=== PATIENT | female | born 1945 | race American Indian/Alaskan Native ===

== ENCOUNTER 2017-09-26 11:10 | Day surgery (SDC) | payer MEDICARE ==
[2017-02-10 19:25] VITALS: BMI 27.4
[2017-09-26] MEDS ORDERED: Propofol 10 mg/ml Inj (20 ML) ONE (16:31)
[2017-09-26] MEDS ORDERED: cefTRIAXone IV 1 gm in Dextros 50 ML IVPB ONE (16:33)
[2017-09-26] MEDS ORDERED: Iohexol 240 (50 ml) ONE (16:33)
[2017-09-26] MEDS ORDERED: HYDROmorphone 0.5 mg/0.5 ml ISec IVP PRN (17:02)
--- NOTE | 2017-09-26 17:24 | RAD ---
Date of service: 09/26/2017 HISTORY: LT HYDRONEPHROSIS COMPARISON: No prior. FINDINGS: BOWEL: Moderate stool retention. Hyperdensities in the left colon possibly related to ingestion and/or conceivably residual oral contrast from an outside CT however, no history of such an outside CT is provided. BONES: Leftward lumbar convexity and mild hypertrophic right L4-5 facet arthrosis para graft bilateral hip arthrosis OTHER FINDINGS: Bilateral hemipelvic calcifications -etiology indeterminate correlation is needed regards to any outside studies - these may be vascular enter GI contact related. Urolithiasis not excluded. Correlation with outside imaging is essential IMPRESSION: Moderate stool retention. No gross renal calculi appreciated Other findings -as above.
[2017-09-26] MEDS ORDERED: Oxycodone/Acetaminophen 5/325 mg Tab PO PRN (17:26)
[2017-09-26 18:36] VITALS: BP 110/90; PULSE 70; RESP 18; TEMP 97; O2SAT 98
--- NOTE | 2017-09-27 11:50 | RAD ---
Date of service: 09/26/2017 PROCEDURE: Intraoperative fluoroscopy HISTORY: LT HYDRONEPHROSIS COMPARISON: Not available TECHNIQUE: Intraoperative fluoroscopy was provided for retrograde pyeloureterography. Total time of fluoroscopy was 6.6 seconds. Accumulated dose is [id number] mGy per meter squared FINDINGS: Multiple fluoroscopic spot films are submitted. Films are on file for review. IMPRESSION: Fluoroscopy provided.
--- NOTE | 2017-10-11 13:24 | OP ---
Copied To: Markus Denson MD Attending MD: Markus Denson MD PROCEDURE DATE: 09/26/2017 PREOPERATIVE DIAGNOSES: Hematuria, voiding dysfunction, and occasional back pain. POSTOPERATIVE DIAGNOSES: Hematuria, voiding dysfunction, and occasional back pain. PROCEDURES: Exam under anesthesia, cystoscopy, bilateral retrograde pyelogram. ESTIMATED BLOOD LOSS: Less than 10 mL. COMPLICATIONS: There were no complications. SPECIMEN: There were no specimens. FINDINGS: No specific major abnormalities detected. INDICATIONS: See history and physical for further details. DESCRIPTION OF PROCEDURE: After obtaining informed consent, the patient was placed on the table. Routine monitors were placed. Timeout was called to confirm the patient and positioning. Risks and benefits were discussed with the patient. Timeout was called. Antibiotic prophylaxis was used. We introduced cystoscope via urethra. The ureteral orifice and bladder was inspected carefully. No bladder tumors were identified. The cystoscope was introduced via the urethra. Bladder and the ureteral orifice was identified. [employer] film was performed . No significant abnormalities are detected. The cystoscope was introduced via the urethra. Bladder was inspected carefully. We at this point performed bilateral retrograde pyelogram. Essentially normal upper tracts are noted. No major abnormalities are detected. At this point, we entered the bladder. Exam under anesthesia revealed normal external genitalia. No pelvis or rectal masses. Mild cystocele. The patient tolerated the procedure without complications. PLAN: The patient come back to the office for routine followup and discuss further workup options, etc. Markus Denson MD
--- NOTE | 2017-10-11 17:36 | HP ---
Copied To: Markus Denson MD Attending MD: Markus Denson MD REASON FOR ADMISSION: Workup of abnormality, microhematuria, voiding dysfunction, and some occasional back pain. HISTORY OF PRESENT ILLNESS: The patient is a very pleasant lady here for cystoscopy, retrograde pyelograms. PAST MEDICAL/SURGICAL HISTORY: Negative for KS, CVA, and her medical doctor as stated. MEDICATIONS: See the chart. ALLERGIES: NONE. REVIEW OF SYSTEMS: As listed above. Noncontributory. No weight loss, chest pain, or shortness of breath. PHYSICAL EXAMINATION: GENERAL: A well-nourished female, in no apparent distress. VITAL SIGNS: Within normal limits. LUNGS: Clear. ABDOMEN: Overall soft. Nontender. No flank mass appreciated. GENITOURINARY: no pelvic or rectal masses. Other than that, unremarkable. LABORATORY DATA: See chart. IMAGING: See chart. DIAGNOSES: Hematuria, voiding dysfunction, and occasional back pain. The plans is as follows: We discussed options. We discussed locations. We are going to consider workups in the office. We are going to consider workup here. The patient is here today after discussing all the options for cystoscopy, retrograde pyelogram, and possible insertion of double J stent. We will discuss further plans based on our findings. ADDENDUM We did a cysto, retrograde pyelogram. See the operative note. No stent was inserted. Markus Denson MD
== END 2017-09-26 18:39 | disposition home or self-care (01) ==
LOC: C.SDS 11:10
PROVIDERS: ATTEND Urology
DX: N13.30 Unspecified hydronephrosis (principal); R31.9 Hematuria, unspecified; M54.9 Dorsalgia, unspecified
CPT/HCPCS: 52005; 74018; C1758; C2617; J0696; J1580